=== PATIENT | female | born 1985 | race Hispanic/Latino ===

== ENCOUNTER 2019-07-19 19:36 | Emergency (ER) | payer SELFPAY ==
[~2019-07-19 19:36] MED LIST: LEVO75TA10 PO; METF-444 PO
[2019-07-19 20:32] LABS: AMPHET/METH SCREEN,URINE NEGATIVE (NEGATIVE); BARBITURATE SCREEN, URINE NEGATIVE (NEGATIVE); BENZODIAZEPINES SCREEN,URINE NEGATIVE (NEGATIVE); CANNABINOID SCREEN,URINE POSITIVE (NEGATIVE); COCAINE SCREEN,URINE NEGATIVE (NEGATIVE); OPIATE SCREEN,URINE NEGATIVE (NEGATIVE); PHENCYCLIDINE SCREEN,URINE NEGATIVE (NEGATIVE)
[2019-07-19 21:17] LABS: BASOPHILS % (AUTO) 0.6 % (0.0-5.0); EOSINOPHILS % (AUTO) 2.3 % (0.0-8.0); HEMATOCRIT 38.3 % (36-48); LYMPHOCYTES % (AUTO) 27.6 % (21.0-51.0); MEAN CORPUSCULAR HEMOGLOBIN 26.3 pg (27.0-33.0); MEAN CORPUSCULAR HGB CONC 31.3 g/dL (32.0-36.0); MEAN CORPUSCULAR VOLUME 83.8 fL (79-99); MONOCYTES % (AUTO) 5.4 % (3.0-13.0); NEUTROPHILS % (AUTO) 63.7 % (40.0-77.0); PLATELET COUNT (AUTO) 328 K/uL (130-400); RED BLOOD CELL COUNT(AUTO) 4.57 MIL/uL (4.00-5.50); RED CELL DISTRIBUTION WIDTH 14.6 % (11.0-15.5); WHITE BLOOD COUNT (AUTO) 7.8 K/uL (4.8-10.8)
[2019-07-19 21:37] LABS: CREATININE 0.8 mg/dL (0.5-1.5); POTASSIUM 3.8 mmol/L (3.5-5.1)
[2019-07-19 21:42] LABS: ALBUMIN 3.3 g/dL (3.5-5.0); BILIRUBIN,TOTAL 0.4 mg/dL (0.2-1.0); TOTAL PROTEIN, SERUM 7.6 g/dL (6.0-8.3)
[2019-07-19] MEDS ORDERED: CYCLOBENZAPRINE HCL 10 MG TABLET ONE (22:02)
[2019-07-19] MEDS ORDERED: HYDROCODONE/ACETAMINOPHEN 5/325 MG TAB ONE (22:02)
== END 2019-07-19 22:23 | disposition home or self-care (01) ==
LOC: EDH 19:36
DX: S43.491A Other sprain of right shoulder joint, initial encounter (principal); F12.10 Cannabis abuse, uncomplicated; E66.9 Obesity, unspecified; E07.9 Disorder of thyroid, unspecified; Z68.45 Body mass index [BMI] 70 or greater, adult; Z72.0 Tobacco use; X58.XXXA Exposure to other specified factors, initial encounter; Y93.89 Activity, other specified; Y92.89 Other specified places as the place of occurrence of the external cause; Y99.8 Other external cause status
CPT/HCPCS: 36415; 71045; 73030; 80053; 80305; 81025; 82550; 84484; 85025; 93005

== ENCOUNTER 2019-08-08 11:07 | Emergency (ER) | payer BC | END 2019-08-08 13:42 | disposition home or self-care (01) | LOC: EDH 11:07 | DX: J10.1 Influenza due to other identified influenza virus with other respiratory manifestations (principal); E03.9 Hypothyroidism, unspecified; Z87.891 Personal history of nicotine dependence | CPT/HCPCS: 71046; 87804 ==

== ENCOUNTER 2020-06-17 18:59 | Emergency (ER) | payer BC ==
[2020-06-17] MEDS ORDERED: CEFTRIAXONE SODIUM 1 GM ONE (19:46)
[2020-06-17] MEDS ORDERED: ALBUTEROL INHALER 90MCG/INH IH ONE (19:46)
[2020-06-17] MEDS ORDERED: AZITHROMYCIN 250 MG TABLET PO ONE (20:19)
[2020-06-17 20:34] LABS: APPEARANCE,URINE Clear (CLEAR); BILIRUBIN,URINE Negative (NEGATIVE); COLOR,URINE Yellow (YELLOW); GLUCOSE, URINE (UA) Negative (NEGATIVE); KETONES,URINE Negative (NEGATIVE); LEUKOCYTE ESTERASE ,URINE Trace (NEGATIVE); NITRATE,URINE Negative (NEGATIVE); OCCULT BLOOD,URINE Negative (NEGATIVE); PROTEIN,URINE Negative (NEGATIVE)
[2020-06-17 20:34] LABS: BASOPHILS % (AUTO) 0.5 % (0.0-5.0); EOSINOPHILS % (AUTO) 2.8 % (0.0-8.0); HEMATOCRIT 38.1 % (36-48); LYMPHOCYTES % (AUTO) 25.8 % (21.0-51.0); MEAN CORPUSCULAR HEMOGLOBIN 26.1 pg (27.0-33.0); MEAN CORPUSCULAR HGB CONC 31.2 g/dL (32.0-36.0); MEAN CORPUSCULAR VOLUME 83.6 fL (79-99); NEUTROPHILS % (AUTO) 65.8 % (40.0-77.0); PLATELET COUNT (AUTO) 312 K/uL (130-400); RED BLOOD CELL COUNT(AUTO) 4.56 MIL/uL (4.00-5.50); RED CELL DISTRIBUTION WIDTH 14.1 % (11.0-15.5); WHITE BLOOD COUNT (AUTO) 7.5 K/uL (4.8-10.8)
[2020-06-17 20:38] LABS: HCG,QUAL RESULT NEGATIVE (NEGATIVE)
[2020-06-17 20:44] LABS: BACTERIA,URINE Rare /HPF (None Seen); RBC,URINE 0-1 /HPF (0-1); SQUAMOUS EPITHELIAL CELL,UR Few /HPF (0-2); WBC,URINE 0-1 /HPF (0-1)
[2020-06-17 20:50] LABS: CREATININE 0.9 mg/dL (0.5-1.5); POTASSIUM 3.8 mmol/L (3.5-5.1)
[2020-06-17 20:53] LABS: ALBUMIN 2.9 g/dL (3.5-5.0); BILIRUBIN,TOTAL 0.2 mg/dL (0.2-1.0); TOTAL PROTEIN, SERUM 7.4 g/dL (6.0-8.3)
== END 2020-06-17 22:00 | disposition home or self-care (01) ==
LOC: EDH 18:59
DX: J06.9 Acute upper respiratory infection, unspecified (principal); Z20.828 Contact with and (suspected) exposure to other viral communicable diseases; Z98.890 Other specified postprocedural states; Z72.0 Tobacco use
CPT/HCPCS: 36415; 71045; 80053; 81001; 81025; 84484; 85025; 87426; 87804 ×2; 87880; 96374; 99284; J0696; U0003

== ENCOUNTER 2021-04-14 18:05 | Emergency (ER) | payer BC ==
[~2021-04-14] VITALS: Ht 157.5 cm; Wt 204.1 kg
[2021-04-14 22:44] VITALS: BP 115/78
[2021-04-14] MEDS ORDERED: ACETAMINOPHEN 500 MG TABLET ONE (22:51)
[2021-04-14] MEDS ORDERED: ACETAMINOPHEN 500 MG TABLET PO ONE (23:00)
[2021-04-14] MEDS ORDERED: ONDA4TAB10 PO (23:19)
[2021-04-14] MEDS ORDERED: METO-296 PO (23:19)
[2021-04-14] MEDS ORDERED: CIPR-279 PO (23:19)
[2021-04-14] MEDS ORDERED: PROMETHAZINE HCL 25 MG/ML 1ML AMPULE IM ONE (23:30)
[2021-04-14] MEDS ORDERED: PROMETHAZINE HCL 25 MG TABLET PO ONE (23:30)
[2021-04-14] MEDS ORDERED: LEVOFLOXACIN 500 MG TABLET PO ONE (23:30)
[2021-04-14] MEDS ORDERED: ONDANSETRON ODT 4MG TAB SL ONE (23:30)
== END 2021-04-14 23:46 | disposition home or self-care (01) ==
LOC: EDH 18:05
DX: R19.7 Diarrhea, unspecified (principal); R11.0 Nausea; R50.9 Fever, unspecified; R51.9 Headache, unspecified; Z20.822 Contact with and (suspected) exposure to COVID-19; Z79.84 Long term (current) use of oral hypoglycemic drugs; E03.9 Hypothyroidism, unspecified; Z79.899 Other long term (current) drug therapy
CPT/HCPCS: 87635; 87804 ×2; 96372; 99284; C9803

== ENCOUNTER 2022-05-12 22:57 | Emergency (ER) | payer BC ==
[~2022-05-12] VITALS: Ht 160 cm; Wt 197.8 kg
[~2022-05-12 22:57] MED LIST changes: +CIPR-279 PO; +METO-296 PO; +ONDA4TAB10 PO
[2022-05-13] MEDS ORDERED: LIDOCAINE HCL 1% 20 ML VIAL INJ SCH (01:00)
[2022-05-13] MEDS ORDERED: SULFAMETHOX-TMP DS 800/160 TAB PO SCH (01:00)
[2022-05-13] MEDS ORDERED: SULF1TAB42 PO (01:53)
[2022-05-13] MEDS ORDERED: IBUP-2070 PO (01:53)
[2022-05-13 01:54] VITALS: BP 134/78
== END 2022-05-13 02:09 | disposition home or self-care (01) ==
LOC: EDH 22:57
DX: N61.1 Abscess of the breast and nipple (principal); E03.9 Hypothyroidism, unspecified; F17.200 Nicotine dependence, unspecified, uncomplicated; Z79.84 Long term (current) use of oral hypoglycemic drugs
CPT/HCPCS: 10060; 82948

== ENCOUNTER 2022-08-17 11:00 | Emergency (ER) | payer BC ==
[~2022-08-17] VITALS: Ht 157.5 cm; Wt 204.1 kg
[~2022-08-17 11:00] MED LIST changes: +IBUP-2070 PO; +SULF1TAB42 PO
[2022-08-17 11:01] VITALS: BP 158/90
[2022-08-17] MEDS ORDERED: AMOX500C2 PO (13:00)
== END 2022-08-17 13:24 | disposition home or self-care (01) ==
LOC: EDH 11:00
DX: K04.7 Periapical abscess without sinus (principal); E03.9 Hypothyroidism, unspecified; Z79.899 Other long term (current) drug therapy

== ENCOUNTER 2022-09-25 10:52 | Emergency (ER) | payer BC, OTHER ==
[~2022-09-25] VITALS: Ht 160 cm; Wt 188.2 kg
[~2022-09-25 10:52] MED LIST changes: +AMOX500C2 PO
[2022-09-25 11:29] VITALS: BP 159/96
[2022-09-25 12:06] LABS: BASOPHILS % (AUTO) 0.7 % (0.0-5.0); EOSINOPHILS % (AUTO) 2.3 % (0.0-8.0); HEMATOCRIT 37.7 % (36-48); LYMPHOCYTES % (AUTO) 24.1 % (21.0-51.0); MEAN CORPUSCULAR HEMOGLOBIN 26.5 pg (27.0-33.0); MEAN CORPUSCULAR HGB CONC 31.8 g/dL (32.0-36.0); MEAN CORPUSCULAR VOLUME 83.4 fL (79-99); MONOCYTES % (AUTO) 6.3 % (3.0-13.0); NEUTROPHILS % (AUTO) 66.2 % (40.0-77.0); PLATELET COUNT (AUTO) 345 K/uL (130-400); RED BLOOD CELL COUNT(AUTO) 4.52 MIL/uL (4.00-5.50); RED CELL DISTRIBUTION WIDTH 14.4 % (11.0-15.5); WHITE BLOOD COUNT (AUTO) 7.7 K/uL (4.8-10.8)
[2022-09-25 12:16] LABS: CREATININE 0.9 mg/dL (0.5-1.5); POTASSIUM 4.3 mmol/L (3.5-5.1)
[2022-09-25 12:21] LABS: ALBUMIN 2.8 g/dL (3.5-5.0); TOTAL PROTEIN, SERUM 7.6 g/dL (6.0-8.3)
[2022-09-25 15:27] LABS: HCG,QUALITATIVE URINE NEGATIVE (NEGATIVE)
[2022-09-25 15:52] LABS: APPEARANCE,URINE TURBID (CLEAR); BILIRUBIN,URINE NEGATIVE (NEGATIVE); COLOR,URINE RED (YELLOW); GLUCOSE, URINE (UA) 100 mg/dL (NEGATIVE); KETONES,URINE 5 mg/dL (NEGATIVE); LEUKOCYTE ESTERASE ,URINE SMALL Leu/uL (NEGATIVE); NITRATE,URINE POSITIVE (NEGATIVE); OCCULT BLOOD,URINE LARGE (NEGATIVE); PH,URINE 6.5 (5.0-8.0); PROTEIN,URINE >=300 mg/dL (NEGATIVE)
[2022-09-25 15:57] LABS: RBC,URINE TNTC /HPF (0-1)
[2022-09-25 15:58] LABS: BACTERIA,URINE Moderate /HPF (None Seen)
[2022-09-25] MEDS ORDERED: SULF1TAB42 PO (17:43)
== END 2022-09-25 18:38 | disposition home or self-care (01) ==
LOC: EDH 10:52
DX: N39.0 Urinary tract infection, site not specified (principal); E03.9 Hypothyroidism, unspecified; F17.200 Nicotine dependence, unspecified, uncomplicated; Z79.84 Long term (current) use of oral hypoglycemic drugs; Z79.1 Long term (current) use of non-steroidal anti-inflammatories (NSAID)
CPT/HCPCS: 36415; 74176; 80053; 81001; 81025; 85025; 86850; 86900; 86901; 87088

== ENCOUNTER 2024-09-21 17:24 | Emergency (ER) | payer BC ==
[~2024-09-21] VITALS: Ht 160 cm; Wt 210.0 kg
[~2024-09-21 17:24] MED LIST changes: +ONDA-243 PO; -ONDA4TAB10 PO
--- NOTE | 2024-09-21 18:52 | HMCIMG ---
PORTABLE CHEST RADIOGRAPH INDICATION: COUGH COMPARISON: 06/17/2020 FINDINGS: Image is somewhat underexposed, but the radiologic examination is still believed to be of reasonable diagnostic quality. Heart size is normal. The pulmonary vascularity and christo appear normal. No abnormal pulmonary parenchymal opacity or consolidation identified. No significant pleural effusion noted. No pneumothorax detected. IMPRESSION: No radiographic evidence for any acute cardiopulmonary process.
[2024-09-21 19:39] LABS: BASOPHILS # (AUTO) 0.05 K/uL (0.00-0.20); BASOPHILS % (AUTO) 0.6 % (0.0-5.0); EOSINOPHILS # (AUTO) 0.23 K/uL (0.00-0.70); EOSINOPHILS % (AUTO) 2.9 % (0.0-8.0); HEMATOCRIT 38.3 % (36-48); IMMATURE GRANULOCYTE ABSOLUTE 0.04 K/uL (0-1); LYMPHOCYTES # (AUTO) 1.9 K/uL (1.0-4.8); LYMPHOCYTES % (AUTO) 24.4 % (21.0-51.0); MEAN CORPUSCULAR HEMOGLOBIN 25.1 pg (27.0-33.0); MEAN CORPUSCULAR HGB CONC 30.8 g/dL (32.0-36.0); MEAN CORPUSCULAR VOLUME 81.5 fL (79-99); MONOCYTES # (AUTO) 0.6 K/uL (0.1-1.0); MONOCYTES % (AUTO) 7.3 % (3.0-13.0); NEUTROPHILS # (AUTO) 5.1 K/uL (1.8-7.7); NEUTROPHILS % (AUTO) 64.3 % (40.0-77.0); PLATELET COUNT (AUTO) 333 K/uL (130-400); RED CELL DISTRIBUTION WIDTH 15.1 % (11.0-15.5); WHITE BLOOD COUNT (AUTO) 7.9 K/uL (4.8-10.8)
[2024-09-21 20:03] LABS: CREATININE 0.8 mg/dL (0.5-1.0); POTASSIUM 3.7 mmol/L (3.5-5.1)
[2024-09-21 20:13] LABS: BILIRUBIN,DIRECT 0.1 mg/dL (0.0-0.3); BILIRUBIN,TOTAL 0.3 mg/dL (0.2-1.0); TOTAL PROTEIN, SERUM 7.4 g/dL (6.0-8.3)
[2024-09-21 20:20] VITALS: BP 160/90; PULSE 80; RESP 20; TEMP 98.3; O2SAT 98
[2024-09-21] MEDS: ketOROlac 15MG/ML VIAL (15MG/ML) IM STA (20:28)
--- NOTE | 2024-09-21 20:29 | ERN ---
ED Note History of Present Illness Stated Complaint: LT SIDED FLANK PAIN Chief Complaint: Abdominal Pain Time Seen by MD: 17:24 Time Seen by Midlevel: 17:30 Dictation: 39-YEAR-OLD FEMALE WITH A HISTORY OF HYPOTHYROIDISM COMING IN COMPLAINING OF RIGHT UPPER QUADRANT PAIN FOR THREE WEEKS. PATIENT STATES PAIN IS INTERMITTENT SHARP. PATIENT ALSO STATES SHE HAS BEEN SICK WITH COUGH. DENIES ANY FEVER, NAUSEA, VOMITING. PATIENT'S LAST MENSTRUAL PERIOD WAS FOUR MONTHS AGO STATES SHE IS IRREGULAR. Allergies: Coded Allergies: No Known Allergies (Verified Allergy, Unknown, 03/11/18) Home Meds Active Scripts Sulfamethoxazole/Trimethoprim (Bactrim Ds Tablet) 1 Each Tablet, 1 TAB PO BID for UTI for 7 Days, #14 TAB 0 Refills Prov:ROXANNE BERMUDEZ DNP 09/25/22 Amoxicillin (Amoxicillin) 500 Mg Capsule, 1000 MG PO BID for 7 Days, #28 CAP 0 Refills Prov:STEFANI PERSAUD [employer] 08/17/22 Sulfamethoxazole/Trimethoprim (Bactrim Ds Tablet) 1 Each Tablet, 1 TAB PO BID for 7 Days, #14 TAB 0 Refills Prov:SIS CRAIN MD 05/13/22 Ibuprofen (Ibuprofen) 600 Mg Tablet, 600 MG PO Q6H PRN for PAIN, #30 TAB Prov:SIS CRAIN MD 05/13/22 Ciprofloxacin HCl (Cipro) 250 Mg Tablet, 250 MG PO BID for 3 Days, #6 TAB 0 Refills Prov:EVANGELISTA DIMAS MD 04/14/21 Metoclopramide HCl (Reglan) 10 Mg Tablet, 10 MG PO TIDP, #20 TAB 0 Refills Prov:EVANGELISTA DIMAS MD 04/14/21 Ondansetron (Ondansetron Odt) 4 Mg Tab.rapdis, 4 MG PO Q6HPRN, #20 TAB 0 Refills Prov:EVANGELISTA DIMAS MD 04/14/21 Reported Medications Metformin HCl (Metformin HCl) 500 Mg Tablet, 500 MG PO DAILY, TAB 03/11/18 Levothyroxine Sodium (Levothyroxine Sodium) 75 Mcg Tablet, 75 MCG PO ACBKFST, TAB 03/11/18 Past Medical History Past Medical History: Hypothyroid Additional Past Medical Hx: DG Surgical History: Social History: Smokers, Drugs, ETOH, Lives with family History: Not Applicable LMP: Jul 04, 2024 Review of System Dictation CONSTITUTIONAL: NEGATIVE FOR FEVER,CHILLS, AND WEIGHT LOSS EYES: NEGATIVE FOR INJURY, PAIN,REDNESS, AND DISCHARGE ENT: NEGATIVE FOR INJURY,PAIN OR SWELLING CARDIOVASCULAR: NEGATIVE FOR CHEST PAIN, PALPITATIONS, AND EDEMA RESPIRATORY: NEGATIVE FOR SHORTNESS OF BREATH, COUGH, AND WHEEZING, ABDOMEN/GI: POSITIVE ABDOMINAL PAIN, NO NAUSEA, NO VOMITING, NO DIARRHEA, AND NO CONSTIPATION BACK: NEGATIVE FOR INJURY AND PAIN : NEGATIVE FOR INJURY, BLEEDING AND DISCHARGE MS/EXTREMITY: NEGATIVE FOR INJURY AND DEFORMITY SKIN: NEGATIVE FOR RASH, AND DISCOLORATION NEURO: NEGATIVE FOR HEADACHE, WEAKNESS, NUMBNESS, TINGLING, AND SEIZURE PSYCH: NEGATIVE FOR SUICIDE IDEATION, HOMICIDAL IDEATION, AND HALLUCINATIONS Review of Systems: was completed Initial Vital Sign VS Vital Signs Date Time Temp Pulse Resp B/P (MAP) Pulse Ox O2 Delivery O2 Flow Rate FiO2 09/21/24 17:59 98.1 83 20 161/98 97 Room Air 09/21/24 20:20 0 21 Physical Exam Dictation GENERAL: AWAKE, ALERT, NAD HEAD/FACE: NORMOCEPHALIC, ATRAUMATIC EYES: PERRL, EOMI, VISION AT BASELINE ENT: ORAL CAVITY CLEAR, TMS CLEAR, NO SIGNS OF INFECTION NECK: TRACHEA MIDLINE, SUPPLE, NO NUCHAL RIGIDITY CARDIOVASCULAR: RRR, NORMAL S1/S2, NO MRGS, NO JVD RESPIRATORY: CTAB, NO RESPIRATORY DISTRESS, NO RALES OR WHEEZES ABDOMEN: SOFT, NON-TENDER, NON-DISTENDED, NORMAL BOWEL SOUNDS, NO GUARDING OR REBOUND. SKIN: WARM, DRY, NORMAL TURGOR, NO RASH MS/EXTREMITY: PULSES EQUAL, NO CYANOSIS, NEUROVASCULAR INTACT, FROM NEURO: COAX4, GCS 15, STRENGTH 5/5, CN 2-12 INTACT, NORMAL CEREBELLAR EXAM, NOR MAL GAIT, PSYCH: NORMAL BEHAVIOR, MOOD, AND AFFECT NORMAL Results (Laboratory/Radiology) Laboratory/Radiology Laboratory Tests Test 09/21/24 19:20 White Blood Count 7.9 K/uL (4.8-10.8) Red Blood Count 4.70 MIL/uL (4.00-5.50) Hemoglobin 11.8 g/dL (12.0-16.0) L Hematocrit 38.3 % (36-48) Mean Corpuscular Volume 81.5 fL (79-99) Mean Corpuscular Hemoglobin 25.1 pg (27.0-33.0) L Mean Corpuscular Hemoglobin Concent 30.8 g/dL (32.0-36.0) L Red Cell Distribution Width 15.1 % (11.0-15.5) Platelet Count 333 K/uL (130-400) Mean Platelet Volume 10.2 fL (7.5-10.5) Immature Granulocyte % (Auto) 0.5 % (0-1) Neutrophils (%) (Auto) 64.3 % (40.0-77.0) Lymphocytes (%) (Auto) 24.4 % (21.0-51.0) Monocytes (%) (Auto) 7.3 % (3.0-13.0) Eosinophils (%) (Auto) 2.9 % (0.0-8.0) Basophils (%) (Auto) 0.6 % (0.0-5.0) Neutrophils # (Auto) 5.1 K/uL (1.8-7.7) Lymphocytes # (Auto) 1.9 K/uL (1.0-4.8) Monocytes # (Auto) 0.6 K/uL (0.1-1.0) Eosinophils # (Auto) 0.23 K/uL (0.00-0.70) Basophils # (Auto) 0.05 K/uL (0.00-0.20) Absolute Immature Granulocyte (auto 0.04 K/uL (0-1) Nucleated Red Blood Cells 0.0 % (0.0-0.19) Sodium Level 140 mmol/L (136-145) Potassium Level 3.7 mmol/L (3.5-5.1) Chloride Level 105 mmol/L (101-111) Carbon Dioxide Level 30 mmol/L (21-32) Blood Urea Nitrogen 6 mg/dL (7-18) L Creatinine 0.8 mg/dL (0.5-1.0) Glomerular Filtration Rate Calc 97 mL/min (>90) Random Glucose 119 mg/dL (70-105) H Total Calcium 8.3 mg/dL (8.5-10.1) L Total Bilirubin 0.3 mg/dL (0.2-1.0) Direct Bilirubin 0.1 mg/dL (0.0-0.3) Aspartate Amino Transf (AST/SGOT) 13 U/L (10-37) Alanine Aminotransferase (ALT/SGPT) 18 U/L (12-78) Alkaline Phosphatase 91 U/L (50-136) Total Protein 7.4 g/dL (6.0-8.3) Albumin 3.0 g/dL (3.5-5.0) L Lipase 21 U/L (16-77) Human Chorionic Gonadotropin, Quant 0 mIU/mL (0-5) Labs Reviewed?: Yes ED Course ED Course Orders Procedure Category Date Status Time Cbc With Differential LAB 09/21/24 In Process 17:56 Basic Metabolic Panel LAB 09/21/24 Complete 17:56 Hepatic Function Panel LAB 09/21/24 Complete 17:56 Lipase LAB 09/21/24 Complete 17:56 Chest 1vw RAD 09/21/24 Resulted 17:56 Hcg,Quantitative LAB 09/21/24 Complete 17:56 Ketorolac PHA 09/21/24 Complete Tromethamine 15mg/Ml 20:16 Current Medications Medications (Trade) Dose Ordered Sig/Ky Route PRN Reason Start Time Stop Time Status Last Admin Dose Admin Ketorolac Tromethamine (toRADol) 15 mg ONCE STAT IM 09/21/24 20:16 09/21/24 20:19 DC Vital Signs Date Time Temp Pulse Resp B/P (MAP) Pulse Ox O2 Delivery O2 Flow Rate FiO2 09/21/24 20:20 98.2 80 20 160/90 98 Room Air* 0 21 09/21/24 17:59 98.1 83 20 161/98 97 Room Air Medical Decision Making MDM MDM: 39-YEAR-OLD FEMALE WITH A HISTORY OF HYPOTHYROIDISM COMING IN COMPLAINING OF RIGHT UPPER QUADRANT PAIN FOR THREE WEEKS. PATIENT STATES PAIN IS INTERMITTENT SHARP. PATIENT ALSO STATES SHE HAS BEEN SICK WITH COUGH. DENIES ANY FEVER, NAUSEA, VOMITING. PATIENT'S LAST MENSTRUAL PERIOD WAS FOUR MONTHS AGO STATES SHE IS IRREGULAR. LAB WORK UNREMARKABLE. NO WHITE COUNT, NO TRANSAMINITIS, LIPASE WITHIN NORMAL RANGE. NORMAL KIDNEY FUNCTION. DISCUSSED FINDINGS WITH THE PATIENT. EDUCATED PATIENT HER RIGHT UPPER QUADRANT PAIN COULD BE RELATED TO GASTRITIS HAND OR TO HER COUGH THAT SHE HAS HAD FOR THE LAST COUPLE OF WEEKS. AFTER TORADOL IM PATIENT FEELS BETTER. EDUCATED PATIENT HE IS FOLLOW UP WITH PCP IN 1-2 DAYS AND TO RETURN TO THE ER IF SYMPTOMS WORSEN. PATIENT VERBALIZED UNDERSTANDING, ANSWERED ALL QUESTIONS. DIFFERENTIAL DIAGNOSIS: CHOLELITHIASIS, PANCREATITIS, MUSCLE STRAIN, PNEUMONIA RATIONALE: TESTS CONSIDERED AND ORDERED SECONDARY TO SHARED DECISION MAKING INCLUDE: PREVIOUS OUTSIDE RECORDS REVIEWED: OLD ER VISITS. RISK OF COMPLICATION AND/OR MORBIDITY OR MORTALITY OF PATIENT MANAGEMENT: NONE MEDICATIONS-PER MEDICATION RECONCILIATION NEED FOR HOSPITALIZATION: PATIENT DOES NOT MEET CRITERIA FOR HOSPITALIZATION. NEED FOR EMERGENCY MAJOR/MINOR SURGERY: NO THERE ARE NO SOCIAL CONCERNS WITH THIS PATIENT. PRESCRIPTION DRUG MANAGEMENT PRESCRIPTIONS WILL INCLUDE SYMPTOMATIC CARE PATIENT'S PRIOR EXTERNAL MEDICAL RECORDS FROM OTHER ER VISITS WERE REVIEWED BY ME INDICATED. PRIOR TESTING AND RESULTS FROM PREVIOUS VISITS WERE REVIEWED. PRIOR TESTS WERE TAKEN INTO ACCOUNT WITH MEDICAL DECISION MAKING AND RESOURCE UTILIZATION, INDEPENDENT HISTORIAN/HISTORIANS WERE USED TO OBTAIN COMPLETE MEDICAL HISTORY. I INDEPENDENTLY INTERPRETED THE TEST THAT WERE PERFORMED, RESULTS WERE REVIEWED BY ME AND CONSIDERED FINDINGS ON RADIOLOGY IF ORDERED. MEDICAL MANAGEMENT AND EXAMINATION INTERPRETATION DISCUSSIONS WERE HAD BY ME WITH OTHER QUALIFIED HEALTHCARE PROFESSIONALS INDICATED FOR THE PATIENT'S CARE. DX & DISP Disposition: Discharge Departure Impression: Primary Impression: Muscle ache Additional Impression: Abdominal pain Condition: Stable Additional Instructions: TAKE [id number] MEDICATION LIKE TYLENOL OR MOTRIN TO CONTROL THE PAIN. FOLLOW UP WITH YOUR PCP IN 1-2 DAYS. RETURN TO THE EMERGENCY ROOM NEEDED. Referrals: JAY PORTILLO Jr., MD (PCP) Time of Disposition: 20:29 I have reviewed the case, and I agree with, Diagnosis and Plan RIKI MEI NP Sep 21, 2024 20:29
== END 2024-09-21 20:41 | disposition home or self-care (01) ==
LOC: EDH 17:24
DX: M79.10 Myalgia, unspecified site (principal); R10.11 Right upper quadrant pain; E03.9 Hypothyroidism, unspecified; F17.200 Nicotine dependence, unspecified, uncomplicated; R10.2 Pelvic and perineal pain; Z79.84 Long term (current) use of oral hypoglycemic drugs
CPT/HCPCS: 99284; 71045; 80076; 80048; 84702; 83690; 85025; 36415; 96372; J1885